=== PATIENT | male | born 1940 | race Caucasian/White ===

== ENCOUNTER 2020-10-02 21:53 | Observation (INO) ==
[2020-10-02] MEDS ORDERED: Isovue-370 500 ML BOTTLE IVP ONE ×2 (22:13→23:17)
[2020-10-02 22:25] LABS: Hematocrit 37.5 % (37.5-50.1); Hemoglobin 12.3 g/dL (12.9-16.9); Mean Corpuscular HGB Conc 32.8 g/dL (31.6-35.5); Mean Corpuscular Hemoglobin 30.3 pg (28.0-33.3); Mean Corpuscular Volume 92.4 fL (83.0-100.0); Mean Platelet Volume 13.3 fL (9.4-12.4); Red Blood Count 4.06 M/mcL (4.19-5.50); Red Cell Distribution Width 15.3 % (11.5-14.5); White Blood Count 11.4 K/mcL (4.3-11.1)
[2020-10-02 22:26] LABS: Platelet Count 86 K/mcL (140-400)
[2020-10-02 22:40] LABS: BUN/Creatinine Ratio 25 (6-26); Blood Urea Nitrogen 32 mg/dL (8-23); Carbon Dioxide 29 mEq/L (23-29); Chloride 103 mEq/L (98-107); Glucose 110 mg/dL (70-105); Osmolality,Calculated 294 (280-300); Potassium 4.1 mEq/L (3.5-5.1); Sodium 138 mEq/L (136-145); eGFR For African Americans > 60 (> 60); eGFR For Non-African Americans 54 (> 60)
[2020-10-02 23:31] LABS: Troponin I < 0.03 ng/mL (< 0.04)
[2020-10-03 00:09] LABS: Activated Partial Thrombo Time 28.6 Seconds (26.0-36.0)
[2020-10-03] MEDS ORDERED: Aspirin 81 MG TAB.CHEW PO ONE (00:19)
[2020-10-03] MEDS ORDERED: Albumin 25% 25gram/100mL 25 GM/100 ML IV.SOLN IVPB ONE (00:20)
[2020-10-03] MEDS: niCARdipine 20 MG/200 ML MLS IVC SCH ×3 (00:39→15:00)
[2020-10-03] MEDS ORDERED: Naloxone 0.4 MG/ML INJ IVP PRN (01:02)
[2020-10-03] MEDS ORDERED: Ondansetron 4 MG/2 ML VIAL IVP PRN (01:02)
[2020-10-03] MEDS ORDERED: *HR* Labetalol 20 MG/4 ML SYRINGE IVP PRN (01:09)
[2020-10-03 02:57] LABS: Bacteria,Urine Few per hpf (None-Few); Bilirubin,Urine Negative (Negative); Blood,Urine Small (Negative); Clarity,Urine Clear (Clear); Color,Urine Colorless (Yellow); Glucose,Urine (UA) Normal (Normal); Hyaline Casts,Urine Few per lpf (None Seen); Ketones,Urine Negative (Negative); Leukocyte Esterase,Urine Negative (Negative); Nitrite,Urine Negative (Negative); PH,Urine 7.5 pH Units (5.0-8.0); Protein,Urine >=300 mg/dL (Neg-Trace); Squamous Epithelial Cell,Urine Few per hpf (None-Few); Urobilinogen,Urine Normal (Normal); WBC,Urine 0-3 per hpf (0-3)
[2020-10-03 03:01] LABS: Amphetamine Screen,Urine Negative ng/mL (Cutoff=1000); Barbiturate Screen,Urine Negative ng/mL (Cutoff=200); Benzodiazepines Screen,Urine Negative ng/mL (Cutoff=200); Cannabinoid Screen,Urine Negative ng/mL (Cutoff = 50); Cocaine Screen,Urine Negative ng/mL (Cutoff= 300); Opiate Screen,Urine Negative ng/mL (Cutoff=300); Phencyclidine Screen,Urine Negative ng/mL (Cutoff=25)
[2020-10-03] MEDS: Levothyroxine 25 MCG TABLET PO SCH (06:01)
[2020-10-03] MEDS: Aspirin Enteric Coated 81 MG Tablet PO SCH (08:11)
[2020-10-03 08:25] LABS: Prothrombin Time 11.8 Seconds (9.4-12.1)
[2020-10-03 08:31] LABS: Alanine Aminotransferase 18 Units/L (7-52); Albumin 2.8 g/dL (3.5-5.7); Albumin/Globulin Ratio 1.3 (1.1-2.2); Alkaline Phosphatase 72 Units/L (34-104); Aspartate Amino Transferase 21 Units/L (13-39); BUN/Creatinine Ratio 24 (6-26); Bilirubin,Total 0.4 mg/dL (0.3-1.0); Blood Urea Nitrogen 32 mg/dL (8-23); Calcium 8.3 mg/dL (8.6-10.3); Carbon Dioxide 25 mEq/L (23-29); Chloride 103 mEq/L (98-107); Chol/HDL Ratio 5.9 (0-4.9); Cholesterol 164 mg/dL (< 200); Globulin 2.2 g/dL (2.4-3.5); Glucose 111 mg/dL (70-105); HDL Cholesterol 28 mg/dL (40-59); LDL Cholesterol,Calculated 86 mg/dL (< 100); LDL Cholesterol,Direct 89 mg/dL (75-193); Osmolality,Calculated 290 (280-300); Potassium 4.1 mEq/L (3.5-5.1); Sodium 136 mEq/L (136-145); Triglycerides 250 mg/dL (< 150); Troponin I < 0.03 ng/mL (< 0.04); eGFR For African Americans > 60 (> 60); eGFR For Non-African Americans 51 (> 60)
[2020-10-03 08:52] LABS: Folate 22.2 ng/mL (3.0-16.0)
[2020-10-03 09:59] LABS: Estimated Average Glucose 140 mg/dl; Hemoglobin A1C 6.5 %
[2020-10-03] MEDS ORDERED: Perflutren Lipid Microsphere 1.3 ML in 0.9 % Sodium Chloride 8.7 ML IVP PRN (14:14)
[2020-10-03] MEDS ORDERED: clonazePAM 0.5 MG TABLET PO SCH (21:00)
[2020-10-04 02:42] LABS: Mean Corpuscular Volume 92.7 fL (83.0-100.0); Mean Platelet Volume 13.9 fL (9.4-12.4)
[2020-10-04 02:44] LABS: Hematocrit 38.1 % (37.5-50.1); Hemoglobin 12.3 g/dL (12.9-16.9); Immature Platelets 16.5 % (1.1-6.1); Mean Corpuscular HGB Conc 32.3 g/dL (31.6-35.5); Mean Corpuscular Hemoglobin 29.9 pg (28.0-33.3); Red Blood Count 4.11 M/mcL (4.19-5.50); Red Cell Distribution Width 15.2 % (11.5-14.5); White Blood Count 8.8 K/mcL (4.3-11.1)
[2020-10-04 02:48] LABS: Potassium 3.4 mEq/L (3.5-5.1)
[2020-10-04] MEDS: Levothyroxine 25 MCG TABLET PO SCH (05:28)
[2020-10-04] MEDS: Aspirin Enteric Coated 81 MG Tablet PO SCH (08:16)
[2020-10-04] MEDS ORDERED: Metoprolol XL (24 HR) Succ 50 MG TAB.ER.24H PO SCH (09:00)
[2020-10-04] MEDS ORDERED: Finasteride 5 MG TABLET PO SCH (09:00)
[2020-10-04] MEDS ORDERED: allopurinoL 100 MG TABLET PO SCH (09:00)
[2020-10-04 11:36] VITALS: BP 197/90
[2020-10-04] MEDS ORDERED: amLODIPine 5 MG TABLET PO SCH (12:00)
== END 2020-10-04 14:38 | disposition home health service (06) ==
LOC: 2NNU 21:53 → EMEROOARM 21:53 → SUATTDRO 10-03 01:08 → 2NNU 10-03 01:58
PROVIDERS: ADMIT Family Medicine; ATTEND Student in an Organized Health Care Education/Training Program